=== PATIENT | male | born 1995 | race Caucasian/White ===

== ENCOUNTER 2022-10-07 07:55 | Emergency (ER) | payer OTHER, SELFPAY ==
[2022-10-07 07:57] VITALS: BP 134/93; PULSE 98; RESP 18; TEMP 36.3; O2SAT 97; BMI 20.5
--- NOTE | 2022-10-07 09:06 | ED_ITS ---
HPI - Dental/Oral General Chief complaint: Dental/Oral Stated complaint: tooth abscess Time Seen by Provider: 10/07/22 09:05 Source: patient Mode of arrival: ambulatory Limitations: no limitations History of Present Illness HPI Narrative: 27 y.o male w/ a PMHx of tooth abscess who presents to the ED c/o dental/left- lower jaw pain and swelling x2 days. He endorses 1 previous episode of dental abscess in the past. States he has taken 1-days worth of Clindamycin and Doxycycline that was given to him by his mother. Denies fevers, chills, noticeable drainage, foul taste in his mouth, trauma to the area, or recent dental work. MD Complaint: tooth pain Related Data Previous Rx's Medication Instructions Recorded amoxicillin 875 mg-potassium 1 tab PO BID 7 days #14 tabs 10/07/22 clavulanate 125 mg tablet Allergies Allergy/AdvReac Type Severity Reaction Status Date / Time bee pollen [bee stings] Allergy Swelling Verified 10/07/22 08:01 cranberry Allergy Vomiting Verified 10/07/22 08:01 Review of Systems Review of Systems: Constitutional: No Fever, No Chills ENT/Mouth: +dental pain, +Jaw pain +Facial swelling, No Ear Pain, No sore throat, No Swallowing Difficulty Eyes: No Eye Pain, No Vision Changes Cardiovascular: No Chest Pain, No SOB Respiratory: No Cough, No Sputum Gastrointestinal: No Nausea, No Vomiting, No Diarrhea, No Abdominal pain Musculoskeletal: No joint pain, No Myalgias, No Joint Swelling Skin: No Skin Lesions, No rash Neuro: No Weakness, No Headache Yes all other systems are reviewed and are negative Constitutional: Constitutional: Reports as per [facility] Past Medical History Attestation statement: The following information was validated with the patient. Social History Social History Advance Directives: No Advance Directives Information Provided: Yes Physical Exam Vital Signs: Vital Signs: Last Vital Signs Temp 97.4 F 10/07/22 07:57 Pulse 98 10/07/22 07:57 Resp 18 10/07/22 07:57 BP 134/93 H 10/07/22 07:57 Pulse Ox 97 10/07/22 07:57 O2 Del Method Room Air 10/07/22 07:57 BMI result Body Mass Index 20.5 Const: General: cooperative, healthy appearing and no acute distress Orientation/consciousness: patient oriented x3 Limitations: no limitations HEENT: Other: + diffuse poor dentition. + Mild erythema and purulent/bloody discharge expressed from left lower lateral incisor, with mild ttp. +mild L-sided facial swelling noted without erythema. Posterior oropharynx without tonsillar erythema or exudates. Uvula midline Head: Yes normal to inspection and Yes atraumatic Ears: hearing grossly normal bilaterally, TM's normal bilaterally and mastoids normal General nose exam: Normal external nose present Teeth and gingiva: poor dentition Throat: Yes posterior oropharynx normal, Yes tonsils normal, Yes uvula midline, No peritonsillar mass and No uvula laterally displaced Eyes: General: appearance normal, both eyes and all related structures EOM: EOMs intact bilaterally Neck: Neck: Yes normal visual inspection, Yes full ROM, Yes no lymphadenopathy and Yes no meningeal signs Resp: Effort & Inspection: normal respiratory effort and no respiratory distress Cardio: Rate: regular rate Heart sounds: S1 normal heart sound present and S2 normal heart sound present Neuro: General: patient oriented x3, tone normal and no meningeal signs Cranial nerves: Yes CN's II-XII intact bilaterally Gait exam (Neuro): Normal gait present Extrem: General: Yes normal to inspection Course Course Course Narrative: Results discussed with patient including worrisome signs and symptoms and strict return precautions, and when to return to the emergency department. They verbalized understanding and feel safe for discharge at this time. Medical Decision Making Medical Decision Making [facility] Narrative: 27 y.o male w/ a PMHx of tooth abscess who presents to the ED c/o dental/left- lower jaw pain and swelling x2 days. On exam patient is well-appearing in NAD, VSS. +L sided lower facial/jaw selling w/ dental abscess noted to lower incisor with erythema and purulent/bloody discharge. Low suspicion for otitis, deeper infection/edema or cellulitis. No evidence of [employer] Plan: I&D, PO Abx Please refer to course for remaining clinical decision making, interpretation of labs/imaging results, and discussions with consultants and/or family members. Differential Diagnosis Differential Diagnoses: The differential diagnosis associated with the prese ntation includes As above Admission/Observation Consideration of admission/observation: Escalation of care including admission/ observation considered Lab Data [facility] Lab Attestation statement: I reviewed the patient's lab results. Radiology Impression Discussion of test interpretation with radiology: I have reviewed the radiologist's reading. External Record Review External record reviewed: Inpatient record, Office record, Outpatient record, Prior outpatient labs, Prior outpatient radiology, Primary care record and Outside ED record Procedures Abscess I/D Site: oral Side (if applicable): left Technique: other (expressed with manipulation) Packing used?: none Discharge Plan Discharge Clinical Impression: Dental abscess Patient Disposition: Home, Self-Care Instructions: Dental Abscess (ED) Additional Instructions: Your abscess was drained today in the emergency department. Augmentin is an antibiotic please take as prescribed. Stop taking previous antibiotics Please follow-up with a dentist. If symptoms persist or worsen, you develop oral swelling, difficulty swelling, fever/chills return to the ED Prescriptions: New amoxicillin-pot clavulanate 875-125 mg tablet 1 tab PO BID 7 Days Qty: 14 0RF Referrals: Lokesh Catherine [Dentist] - Bill Cruz DMD [Dentist] - Danilo Gold DMD [Dentist] - Zeenat Banuelos DMD [Dentist] - Stand Alone Forms: Work/School Release Interventions: ED Discharge Assessment Last Done: 10/07/22 10:21 Discharge Date/Time: 10/07/22 10:30
== END 2022-10-07 10:30 | disposition home or self-care (01) ==
PROVIDERS: Emergency Provider Student in an Organized Health Care Education/Training Program
DX: K04.7 Periapical abscess without sinus (principal)
CPT/HCPCS: 99282; 99283